=== PATIENT | female | born 1930 | race Caucasian/White ===

== ENCOUNTER → 2016-09-20 | Outpatient (REF) | payer MEDICARE, BC ==
[~2016-09-20] MED LIST: /WARF25TA OR; ACET65TA OR; ASPI81TA3 OR; COQ 10 PO; COZA25TA8 OR; FISH1000; GLUC500T3 OR; MULTIVIT PO; NITR0.4S SL; PERC5TAB8 OR; PRAVASTATIN PO; TOPR50TA OR; VIACTIV PO
== END ==
LOC: M LAB REF 17:37
PROVIDERS: ATTEND Nurse Practitioner Adult Health
DX: N39.0 Urinary tract infection, site not specified (principal)

== ENCOUNTER 2017-02-05 11:28 | Inpatient (IN) | payer MEDICARE, BC ==
[~2017-02-05] VITALS: Ht 157.5 cm; Wt 56.0 kg
[~2017-02-05 11:28] MED LIST changes: -ASPI81TA3 OR; +ASPI81TA3 PO
[2017-02-05] MEDS ORDERED: DONETAB5 PO (11:53)
[2017-02-05] MEDS ORDERED: ATOR80TA59 PO (11:53)
[2017-02-05] MEDS ORDERED: METO1TAB32 PO (11:53)
[2017-02-05] MEDS ORDERED: LISI-542 PO (11:53)
[2017-02-05] MEDS ORDERED: MELO7.5T7 PO (11:53)
[2017-02-05] MEDS ORDERED: BREO1INH INH (11:53)
[2017-02-05] MEDS ORDERED: BRIL90TA PO (11:53)
[2017-02-05 11:59] LABS: BASO % 0.3 % (0.0-1.0); EOS # 0.1 10^3/uL (0.0-0.50); EOS % 1.1 % (0.0-3.0); IMMATURE GRANULOCYTE % 1.9 % (0-0); LYMPH # 1.2 10^3/uL (1.5-4.5); LYMPH % 17.1 % (24.0-44.0); MEAN CORPUSCULAR HEMOGLOBIN 31.3 pg (27.0-33.0); MEAN CORPUSCULAR HGB CONC 32.1 g/dl (32.0-36.5); MEAN CORPUSCULAR VOLUME 97.7 fl (80.0-96.0); MONO # 0.9 10^3/uL (0.0-0.8); MONO % 13.1 % (0.0-5.0); NEUTROPHILS # 4.8 10^3/uL (1.8-7.7); NEUTROPHILS % 66.5 % (36.0-66.0); PLATELET COUNT, AUTOMATED 169 10^3/uL (150-450); RED CELL DISTRIBUTION WIDTH 14.7 % (11.5-14.5); WHITE BLOOD COUNT 7.2 10^3/uL (4.0-10.0)
[2017-02-05] MEDS ORDERED: ASPIRIN 81 MG CHEW TABLET PO ONE (12:00)
[2017-02-05 12:03] LABS: INR 1.02
[2017-02-05 12:11] LABS: CALCIUM LEVEL 9.5 MG/DL (8.8-10.2); CREATININE FOR GFR 1.18 MG/DL (0.55-1.02); GLOMERULAR FILTRATION RATE 46.1 (>32); POTASSIUM SERUM 4.5 MEQ/L (3.5-5.1)
--- NOTE | 2017-02-05 12:33 | ECGEPIP ---
Stationary ECG Study [facility] - ED Test Date: 2017-02-05 Pat Name: RENU DODD Department: Room: - Gender: F Photographer Aerial: jocelyn : 1930 Requested By: Sp Meehan Order Number: [id number] Reading MD: Triny Foote Measurements Intervals [place] Rate: 67 P: 22 [place]: 145 QRS: -42 QRSD: 96 T: -40 QT: 360 QTc: 382 Interpretive Statements SINUS RHYTHM WITH SINUS ARRHYTHMIA MARKED LEFT AXIS DEVIATION VOLTAGE CRITERIA FOR LVH MODERATE ST DEPRESSION, CLINICAL CORRELATION Electronically Signed On 02-05-2017 12:33:35 EST by Triny Foote
--- NOTE | 2017-02-05 12:52 | REP ---
REASON FOR EXAM: Chest pain. COMPARISON: 12/06/2013. The technique utilized in obtaining the radiograph has magnified the cardiac silhouette and accentuated the interstitial markings. There is no change from the prior exam. Dual chamber bipolar pacemaker device status quo. No cardiomegaly. No acute patchy opacities or pleural effusions. No change in the osseous structures. IMPRESSION: No evidence of acute cardiopulmonary disease. Signed by Medardo Corrales DO 02/05/2017 01:38 P
--- NOTE | 2017-02-05 13:00 | REP ---
REASON: Confusion. COMPARISON: 11/25/2014. Since the last examination, a large, approximately 5.7 x 2.6 cm sized areas of abnormal low attenuation has developed in the left parieto-occipital watershed region. 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 There is no evidence of an acute intracranial hemorrhage. There is no shift of the midline structures. The skull and skull base are unchanged. IMPRESSION: 1. 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 2. Chronic changes as described above. Signed by Medardo Corrales DO 02/05/2017 01:39 P
[2017-02-05] MEDS ORDERED: [UNRECOGNIZED DRUG - REMARK] PO (16:06)
[2017-02-05 16:25] LABS: MAGNESIUM LEVEL 2.1 MG/DL (1.8-2.4)
[2017-02-05 16:44] VITALS: BP 132/65
--- NOTE | 2017-02-05 17:18 | CR.PDOC ---
[facility] Consultation Consultation DATE OF CONSULTATION: Feb 05, 2017 at 11:28 PRIMARY CARE PHYSICIAN: Gisela Mata NP REFERRING PROVIDER: Dr. Rosario ATTENDING PHYSICIAN: Dr. Dominguez REASON FOR CONSULTATION/CHIEF COMPLAINT: confusion, weakness HISTORY OF PRESENT ILLNESS: 74-year-old female is brought in via EMS for confusion and weakness. PMH includes CAD s/p 1 stent in 2016 and dementia. Family noticed that she was wandering around lost and confused ~11am this morning. Per pt, she felt dizzy and off balance as well, but does not recall the event. Per patient "I just got up and didn't know where I was." Patient denies ever experiencing this before. Denies recent changes in medications, travel history, sick contacts. Patient denies all other ROS including chest pain , shortness of breath, slurred speech, facial droop, paresthesia, loss of bowel/ bladder function. Her significant other is in the room and states he administered Breo while waiting for ambulance. ALLERGIES: Please see below. HOME MEDICATIONS: Please see below. PAST MEDICAL HISTORY: 1. CAD s/p stent 2015 2. dementia PAST SURGICAL HISTORY: 1. pacemaker, 2012, Dr. Damon 2. 1 cardiac stent, 2015 3. left hip replacement FAMILY HISTORY: Mother: CAD SOCIAL HISTORY: Marital status and/or living arrangements: lives with significant other Anthony in [place]. Walks with cane Tobacco use: never ETOH: denies REVIEW OF SYSTEMS: CONSTITUTIONAL: Denies fever, chills, weight changes, night sweats. HEENT: Denies vision change, eye or ear pain. CARDIOVASCULAR: Denies chest pain or pressure, palpitations, edema. RESPIRATORY: Denies cough, wheezing, shortness of breath. GENITOURINARY: Denies dysuria, hematuria, pelvic pain or pressure. MUSCULOSKELETAL: Denies weakness or pain in all extremities and joints GASTROINTESTINAL: Denies nausea, vomiting, constipation, diarrhea melena, hematochezia, loss of appetite, dysphagia. SKIN: Denies new skin rashes. NEUROLOGICAL: Denies paresthesia, loss of sensation, facial droop, slurred speech, loss of bowel or bladder control, tongue biting, shaking. ENDOCRINE: Denies heat or cold intolerance. HEMATOLOGIC/LYMPHATIC: Denies easy or current bleeding or bruising. PHYSICAL EXAMINATION: VITAL SIGNS: Please see below. GENERAL APPEARANCE: NAD, A&O3 HEENT: Normocephalic, atraumatic. PERRLA, EOMI. No ptosis or facial droop. Tongue midline. Wears upper dentures. No carotid bruits or JVD. RESPIRATORY: CTAB. No wheezing. CARDIOVASCULAR: RRR, normal S1 and S2. ABDOMEN: Soft, nontender, nondistended. Positive bowel sounds. EXTREMITIES: No clubbing, cyanosis, edema. NEUROLOGICAL: No slurred speech. Motor and sensation intact throughout. PSYCHIATRIC: Normal mood and affect. Eager to go home. LABORATORY DATA: Please see below. ASSESSMENT/PLAN: Pt was recommended to be admitted to hospital for observation overnight, but pt requesting to leave AMA. Risks of leaving were discussed, pt still adamant about leaving AMA. For the following problems, we recommend: 1. Metabolic encephalopathy * Likely 2/2 UTI. Pt also has hx of dementia, which is also contributing to mentation * Unlikely to be cardiac etiology: negative cardiac markers and normal EKG and CXR, no murmurs on exam * Less likely to be neurologic: patient has no focal deficits, and head CT and vitals are normal and labs non-concerning * Negative BP orthostatics, patient asymptomatic when walked around the ED with assistance 2. UTI * Positive UA in ED * Although patient has no leukocytosis or fever, UTI in elderly may be contributing to confusion * Urine culture pending * Since patient is signing out of the hospital, we recommend 3 days of PO Ciprofloxacin 3. CAD * [place] in 2016, s/p 1 cardiac stent. Continue home meds with regular follow-ups with PCP and trash man. 4. Dementia * contributing factor to pt's confusion. Poor memory at baseline. Continue home med and may require home assistance. Vital Signs/I&O Vital Signs Date Time Temp Pulse Resp B/P (MAP) Pulse Ox O2 Delivery O2 Flow Rate FiO2 02/05/17 16:44 82 136/68 (90) 91 121/70 (87) 127 132/65 (87) 02/05/17 11:37 97.0 18 98 Room Air Laboratory Data Labs 24H Laboratory Tests 2 02/05/17 11:39: Immature Granulocyte % (Auto) 1.9H, White Blood Count 7.2, Red Blood Count 3.83L , Hemoglobin 12.0, Hematocrit 37.4, Mean Corpuscular Volume 97.7H, Mean Corpuscular Hemoglobin 31.3, Mean Corpuscular Hemoglobin Concent 32.1, Red Cell Distribution Width 14.7H, Platelet Count 169, Neutrophils (%) (Auto) 66.5H, Lymphocytes (%) (Auto) 17.1L, Monocytes (%) (Auto) 13.1H, Eosinophils (%) (Auto ) 1.1, Basophils (%) (Auto) 0.3, Neutrophils # (Auto) 4.8, Lymphocytes # (Auto) 1.2L, Monocytes # (Auto) 0.9H, Eosinophils # (Auto) 0.1, Basophils # (Auto) 0.0 , Immature Granulocyte # (Auto) 0.1H, Nucleated Red Blood Cells % (auto) 0.0, Prothrombin Time 13.5, Prothromb Time International Ratio 1.02, Activated Partial Thromboplast Time 32.6, Anion Gap 9, Glomerular Filtration Rate 46.1, Blood Urea Nitrogen 24H, Creatinine 1.18H, Sodium Level 139, Potassium Level 4.5 , Chloride Level 105, Carbon Dioxide Level 25, Calcium Level 9.5, Total Creatine Kinase 133, Creatine Kinase MB 3.4, Creatine Kinase MB Relative Index 2.55, Troponin I 0.02 02/05/17 14:17: Total Creatine Kinase 135, Creatine Kinase MB 3.4, Creatine Kinase MB Relative Index 2.51, Troponin I 0.02, Magnesium Level 2.1 02/05/17 16:25: Urine Appearance CLOUDYH, Urine Color YELLOW, Urine pH 5.0, Urine Specific [place] 1.014, Urine Protein NEGATIVE, Urine Glucose (UA) NEGATIVE, Urine Ketones NEGATIVE, Urine Urobilinogen 0.2, Urine Bilirubin NEGATIVE, Urine Leukocyte Esterase 3+H, Urine Blood 1+H, Urine Nitrite POSITIVE, Urine WBC (Auto ) TNTCH, Urine RBC (Auto) 3, Urine Hyaline Casts (Auto) 0, Urine Bacteria (Auto ) 2+H, Urine Squamous Epithelial Cells 3, Urine Sperm (Auto) CBC/BMP Laboratory Tests 02/05/17 11:39 Red Blood Count 3.83 L, Mean Corpuscular Volume 97.7 H, Mean Corpuscular Hemoglobin 31.3, Mean Corpuscular Hemoglobin Concent 32.1, Red Cell Distribution Width 14.7 H, Neutrophils (%) (Auto) 66.5 H, Lymphocytes (%) (Auto ) 17.1 L, Monocytes (%) (Auto) 13.1 H, Eosinophils (%) (Auto) 1.1, Basophils (% ) (Auto) 0.3, Neutrophils # (Auto) 4.8, Lymphocytes # (Auto) 1.2 L, Monocytes # (Auto) 0.9 H, Eosinophils # (Auto) 0.1, Basophils # (Auto) 0.0, Calcium Level 9.5, Total Creatine Kinase 133 Allergies Coded Allergies: Codeine (Unverified Adverse Reaction, Mild, GI UPSET, 11/23/13) Home Medications Scheduled Aspirin (Aspirin Ec) 81 Mg Tab, 81 MG PO QHS, (Reported) Atorvastatin Calcium (Atorvastatin Calcium) 80 Mg Tab, 80 MG PO QHS, (Reported) Donepezil Hcl (Donepezil HCl) 5 Mg Tab, 5 MG PO QHS, (Reported) Fluticasone/Vilanterol (Breo Ellipta 100-25 Mcg/INH) 1 Inh Inh, 1 PUFF INH DAILY , (Reported) Lisinopril (Lisinopril) 5 Mg Tab, 5 MG PO DAILY, (Reported) Metoprolol Succinate (Metoprolol Succinate ER) 25 Mg Tab, 25 MG PO DAILY, ( Reported) Ticagrelor Base (Brilinta) 90 Mg Tab, 90 MG PO BID, (Reported) [Otc Memory Med] , 1 TAB PO DAILY, (Reported) CANNOT REMEMBER NAME OF MEDICATION Scheduled PRN Meloxicam (Meloxicam) 7.5 Mg Tab, 7.5 MG PO DAILY PRN for PAIN, (Reported) GME ATTESTATION GME ATTESTATION My faculty preceptor for this patient encounter was physically present during the encounter and was fully available. All aspects of the patient interview, examination, medical decision making process, and medical care plan development were reviewed and approved by the faculty preceptor. The faculty preceptor is aware and concurs with the plan as stated in the body of this note and will attest to such by his/her cosignature. ATTENDING NOTE Attending Note: I have independently examined this patient and all aspects of the exam and treatment decisions have been discussed with the resident. A member of the hospitalist staff will continue to follow this patient through discharge. BHARAT BENOIT DO Feb 05, 2017 17:09 FINA DOMINGUEZ DO Feb 05, 2017 20:17
--- NOTE | 2017-02-06 08:02 | ECGEPIP ---
Stationary ECG Study [facility] - ED Test Date: 2017-02-05 Pat Name: RENU DODD Department: Room: - Gender: F Director Of Medical Staff Services: manuel : 1930 Requested By: Sp Meehan Order Number: [id number] Reading MD: pS Rosario Measurements Intervals [place] Rate: 71 P: -12 [place]: 154 QRS: -42 QRSD: 91 T: -43 QT: 356 QTc: 389 Interpretive Statements SINUS RHYTHM LEFT AXIS DEVIATION VOLTAGE CRITERIA FOR LVH NONSPECIFIC ST & T-WAVE ABNORMALITY SIMILAR TO PRIOR ON SAME DATE Electronically Signed On 02-06-2017 8:02:24 EST by Sp Rosario
== END 2017-02-05 17:29 | disposition left against medical advice (07) | DRG 690 ==
LOC: EDBD 11:28 → M ED 11:28 → M ED INP 16:03 → UNDOADMOB 16:03 → M ED INP 16:13
PROVIDERS: ADMIT Hospitalist; ATTEND Internal Medicine Nephrology
DX: N39.0 Urinary tract infection, site not specified (principal); F03.90 Unspecified dementia, unspecified severity, without behavioral disturbance, psychotic disturbance, mood disturbance, and anxiety; I25.10 Atherosclerotic heart disease of native coronary artery without angina pectoris; B96.20 Unspecified Escherichia coli [E. coli] as the cause of diseases classified elsewhere; Z95.0 Presence of cardiac pacemaker; Z96.642 Presence of left artificial hip joint; Z79.82 Long term (current) use of aspirin; Z79.899 Other long term (current) drug therapy

== ENCOUNTER 2017-09-30 20:54 | Inpatient (IN) | payer MEDICARE, BC ==
[2017-09-30] MEDS: cefTRIAXone SOD 1 GM in D5W MINI-BAG PLUS 50 ML IV (08:59)
[2017-09-30] MEDS: levETIRAcetam INJection 1,000 MG in D5W 100 ML IV (22:29)
[2017-09-30 22:34] LABS: HEMATOCRIT 35.9 % (36.0-47.0); HEMOGLOBIN 10.8 g/dl (12.0-15.5); MEAN CORPUSCULAR HEMOGLOBIN 31.4 pg (27.0-33.0); MEAN CORPUSCULAR HGB CONC 30.1 g/dl (32.0-36.5); MEAN CORPUSCULAR VOLUME 104.4 fl (80.0-96.0); PLATELET COUNT, AUTOMATED 178 10^3/uL (150-450); RED BLOOD COUNT 3.44 10^6/uL (4.00-5.40); RED CELL DISTRIBUTION WIDTH 14.6 % (11.5-14.5); WHITE BLOOD COUNT 11.7 10^3/uL (4.0-10.0)
[2017-09-30 22:41] LABS: ADD MANUAL DIFFER YES; DIFF SLIDE NUMBER 356; POS COUNT POS FLAG; POSITIVE MORPH POS FLAG
[2017-09-30 22:44] LABS: ANION GAP 8 MEQ/L (8-16); BLOOD UREA NITROGEN 27 MG/DL (7-18); CALCIUM LEVEL 9.4 MG/DL (8.8-10.2); CARBON DIOXIDE LEVEL 24 MEQ/L (21-32); CHLORIDE LEVEL 110 MEQ/L (98-107); CREATININE FOR GFR 1.36 MG/DL (0.55-1.30); GLOMERULAR FILTRATION RATE 39.1 (>32); GLUCOSE, FASTING 152 MG/DL (70-100); SODIUM LEVEL 142 MEQ/L (136-145)
[2017-09-30 22:48] LABS: LACTIC ACID SEPSIS PROTOCOL 1.4 MMOL/L (0.4-2.0)
[2017-09-30] MEDS: PHENobarbital INJ 65 MG/ML VIAL (J2560) IV (22:53)
[2017-09-30 22:59] LABS: ATYPICAL LYMPH 5 % (0-5); BASOPHILS 1 % (0-4); EOSINOPHILS 1 % (0-5); LYMPHOCYTES 21 % (16-52); METAMYELOCYTES 1 % (0-0); MONOCYTES 15 % (0-8); MYELOCYTES 1 % (0-0); NEUTROPHILS 55 % (35-75)
[2017-09-30 23:00] LABS: BURR CELLS 2+; PLATELET ESTIMATE NORMAL (NORMAL); POIKILOCYTOSIS 2+
[2017-10-01] MEDS ORDERED: BISACODYL 10 MG SUPP PR (00:30)
[2017-10-01] MEDS ORDERED: ONDANSETRON 4 MG TAB (S0181) PO (00:30)
[2017-10-01] MEDS ORDERED: ACETAMINOPHEN TAB 650MG DOSE (2X325MG) PO (00:30)
[2017-10-01] MEDS: ATORVASTATIN 20 MG TAB PO ×2 (00:38→19:14)
[2017-10-01] MEDS: TICAGRELOR 90 MG TABLET (BRILINTA) PO ×3 (00:39→19:14)
[2017-10-01] MEDS: DONEPEZIL 5 MG TAB PO ×2 (00:39→19:13)
[2017-10-01] MEDS ORDERED: levETIRAcetam 250MG TABLET (KEPPRA) PO (00:40)
[2017-10-01] MEDS: ADVAIR HFA 230/21MCG INHALER INH ×3 (00:41→19:52)
[2017-10-01] MEDS: ASPIRIN 81 MG CHEW TABLET PO ×2 (00:42→19:14)
[2017-10-01 04:33] LABS: HEMATOCRIT 30.8 % (36.0-47.0); HEMOGLOBIN 9.8 g/dl (12.0-15.5); MEAN CORPUSCULAR HEMOGLOBIN 31.5 pg (27.0-33.0); MEAN CORPUSCULAR HGB CONC 31.8 g/dl (32.0-36.5); PLATELET COUNT, AUTOMATED 157 10^3/uL (150-450); RED BLOOD COUNT 3.11 10^6/uL (4.00-5.40); RED CELL DISTRIBUTION WIDTH 14.5 % (11.5-14.5); WHITE BLOOD COUNT 13.3 10^3/uL (4.0-10.0)
[2017-10-01 05:00] LABS: ALBUMIN 3.7 GM/DL (3.2-5.2); ALBUMIN/GLOBULIN RATIO 1.06 (1.00-1.93); ALKALINE PHOSPHATASE 55 U/L (45-117); ALT/SGPT 26 U/L (12-78); ANION GAP 9 MEQ/L (8-16); AST/SGOT 30 U/L (7-37); BILIRUBIN,TOTAL 0.4 MG/DL (0.2-1.0); BLOOD UREA NITROGEN 27 MG/DL (7-18); CALCIUM LEVEL 9.2 MG/DL (8.8-10.2); CARBON DIOXIDE LEVEL 23 MEQ/L (21-32); CHLORIDE LEVEL 110 MEQ/L (98-107); GLOMERULAR FILTRATION RATE 41.2 (>32); GLUCOSE, FASTING 134 MG/DL (70-100); POTASSIUM SERUM 4.7 MEQ/L (3.5-5.1); SODIUM LEVEL 142 MEQ/L (136-145); TOTAL PROTEIN 7.2 GM/DL (6.4-8.2)
[2017-10-01 05:12] LABS: ESTIMATED AVERAGE GLUCOSE 117 MG/DL (60-110); HEMOGLOBIN A1c 5.7 %
[2017-10-01 05:13] LABS: KETONE, URINE AUTO RFX NEGATIVE (NEGATIVE); MUCUS, URINE RFX SMALL (NEGATIVE); NITRITE, URINE AUTO RFX NEGATIVE (NEGATIVE); RBC, URINE AUTO RFX 3 /HPF (0-3); SPECIFIC GRAVITY UR AUTO RFX 1.012 (1.002-1.035); SQUAM EPITHELIAL CELL UR AURFX 0 /HPF (0-6)
[2017-10-01 05:14] LABS: LEUKOCYTE ESTERASE UR AUTO RFX 3+ (NEGATIVE); WBC, URINE AUTO RFX 125 /HPF (0-3)
[2017-10-01] MEDS ORDERED: ONDANSETRON 4MG/2ML VIAL (J2405) As Ordered (08:24)
[2017-10-01] MEDS: ONDANSETRON 4MG/2ML VIAL (J2405) IV (08:30)
[2017-10-01] MEDS: NS 1,000 ML IV ×2 (08:59→20:27)
[2017-10-01] MEDS: LISINOPRIL 5 MG TAB PO (09:00)
[2017-10-01] MEDS: METOPROLOL SUCC *XL* 25MG TAB (TopROL *XL*) PO (09:00)
[2017-10-01] MEDS: levETIRAcetam 250MG TABLET (KEPPRA) PO (09:00)
[2017-10-01] MEDS: HEPARIN SOD (PORCINE) 5000 UNITS/ML VIAL SQ ×2 (13:25→21:20)
[2017-10-01] MEDS: levETIRAcetam INJection 500 MG in D5W MINI-BAG PLUS 100 ML IV ×2 (13:25→23:53)
[2017-10-02] MEDS: HEPARIN SOD (PORCINE) 5000 UNITS/ML VIAL SQ ×3 (05:42→21:03)
[2017-10-02] MEDS: ADVAIR HFA 230/21MCG INHALER INH ×2 (07:32→19:36)
[2017-10-02 07:41] LABS: BASO % 0.2 % (0.0-1.0); EOS % 0.1 % (0.0-3.0); HEMATOCRIT 27.7 % (36.0-47.0); HEMOGLOBIN 8.6 g/dl (12.0-15.5); IMMATURE GRANULOCYTE % 2.8 % (0-3.0); MEAN CORPUSCULAR HEMOGLOBIN 31.3 pg (27.0-33.0); MEAN CORPUSCULAR VOLUME 100.7 fl (80.0-96.0); MONO # 1.7 10^3/uL (0.0-0.8); MONO % 17.3 % (0.0-5.0); NEUTROPHILS # 6.9 10^3/uL (1.8-7.7); NEUTROPHILS % 69.6 % (36.0-66.0); PLATELET COUNT, AUTOMATED 137 10^3/uL (150-450); RED BLOOD COUNT 2.75 10^6/uL (4.00-5.40); RED CELL DISTRIBUTION WIDTH 14.9 % (11.5-14.5); WHITE BLOOD COUNT 9.9 10^3/uL (4.0-10.0)
[2017-10-02 08:15] LABS: ALBUMIN/GLOBULIN RATIO 1.03 (1.00-1.93); ALKALINE PHOSPHATASE 44 U/L (45-117); ALT/SGPT 21 U/L (12-78); ANION GAP 7 MEQ/L (8-16); AST/SGOT 30 U/L (7-37); BILIRUBIN,TOTAL 0.4 MG/DL (0.2-1.0); BLOOD UREA NITROGEN 19 MG/DL (7-18); CARBON DIOXIDE LEVEL 23 MEQ/L (21-32); CHLORIDE LEVEL 115 MEQ/L (98-107); CREATININE FOR GFR 0.92 MG/DL (0.55-1.30); GLOMERULAR FILTRATION RATE > 60.0 (>32); GLUCOSE, FASTING 91 MG/DL (70-100); MAGNESIUM LEVEL 2.1 MG/DL (1.8-2.4); POTASSIUM SERUM 4.2 MEQ/L (3.5-5.1); SODIUM LEVEL 145 MEQ/L (136-145); TOTAL PROTEIN 5.9 GM/DL (6.4-8.2)
[2017-10-02] MEDS: LISINOPRIL 5 MG TAB PO (08:36)
[2017-10-02] MEDS: METOPROLOL SUCC *XL* 25MG TAB (TopROL *XL*) PO (08:37)
[2017-10-02] MEDS: TICAGRELOR 90 MG TABLET (BRILINTA) PO ×2 (08:37→20:08)
[2017-10-02] MEDS: cefTRIAXone SOD 1 GM in D5W MINI-BAG PLUS 50 ML IV (08:38)
[2017-10-02] MEDS: levETIRAcetam INJection 500 MG in D5W MINI-BAG PLUS 100 ML IV ×2 (12:30→23:46)
[2017-10-02] MEDS: ASPIRIN 81 MG CHEW TABLET PO (20:08)
[2017-10-02] MEDS: DONEPEZIL 5 MG TAB PO (20:08)
[2017-10-02] MEDS: ATORVASTATIN 20 MG TAB PO (20:08)
[2017-10-03 04:29] LABS: BASO % 0.2 % (0.0-1.0); EOS # 0.1 10^3/uL (0.0-0.50); EOS % 0.6 % (0.0-3.0); HEMOGLOBIN 8.6 g/dl (12.0-15.5); IMMATURE GRANULOCYTE % 3.1 % (0-3.0); LYMPH # 1.1 10^3/uL (1.5-4.5); LYMPH % 11.2 % (24.0-44.0); MEAN CORPUSCULAR HEMOGLOBIN 31.7 pg (27.0-33.0); MEAN CORPUSCULAR HGB CONC 31.9 g/dl (32.0-36.5); MEAN CORPUSCULAR VOLUME 99.6 fl (80.0-96.0); MONO # 1.7 10^3/uL (0.0-0.8); MONO % 18.3 % (0.0-5.0); NEUTROPHILS # 6.2 10^3/uL (1.8-7.7); NEUTROPHILS % 66.6 % (36.0-66.0); PLATELET COUNT, AUTOMATED 122 10^3/uL (150-450); RED BLOOD COUNT 2.71 10^6/uL (4.00-5.40); RED CELL DISTRIBUTION WIDTH 14.7 % (11.5-14.5); WHITE BLOOD COUNT 9.3 10^3/uL (4.0-10.0)
[2017-10-03 04:51] LABS: ALBUMIN 3.1 GM/DL (3.2-5.2); ALKALINE PHOSPHATASE 43 U/L (45-117); ALT/SGPT 21 U/L (12-78); ANION GAP 7 MEQ/L (8-16); AST/SGOT 34 U/L (7-37); BILIRUBIN,TOTAL 0.4 MG/DL (0.2-1.0); BLOOD UREA NITROGEN 16 MG/DL (7-18); CALCIUM LEVEL 8.2 MG/DL (8.8-10.2); CARBON DIOXIDE LEVEL 24 MEQ/L (21-32); CHLORIDE LEVEL 111 MEQ/L (98-107); GLOMERULAR FILTRATION RATE > 60.0 (>32); GLUCOSE, FASTING 90 MG/DL (70-100); POTASSIUM SERUM 3.7 MEQ/L (3.5-5.1); SODIUM LEVEL 142 MEQ/L (136-145); TOTAL PROTEIN 6.2 GM/DL (6.4-8.2)
[2017-10-03] MEDS: HEPARIN SOD (PORCINE) 5000 UNITS/ML VIAL SQ (05:11)
[2017-10-03] MEDS: LISINOPRIL 5 MG TAB PO (07:51)
[2017-10-03] MEDS: cefTRIAXone SOD 1 GM in D5W MINI-BAG PLUS 50 ML IV (07:51)
[2017-10-03] MEDS: TICAGRELOR 90 MG TABLET (BRILINTA) PO ×2 (07:52→20:57)
[2017-10-03] MEDS: METOPROLOL SUCC *XL* 25MG TAB (TopROL *XL*) PO (07:52)
[2017-10-03] MEDS: ADVAIR HFA 230/21MCG INHALER INH ×2 (07:58→20:20)
[2017-10-03] MEDS: levETIRAcetam INJection 500 MG in D5W MINI-BAG PLUS 100 ML IV (12:16)
[2017-10-03] MEDS: ATORVASTATIN 20 MG TAB PO (20:56)
[2017-10-03] MEDS: ASPIRIN 81 MG CHEW TABLET PO (20:56)
[2017-10-03] MEDS: DONEPEZIL 5 MG TAB PO (20:57)
[2017-10-04] MEDS: levETIRAcetam INJection 500 MG in D5W MINI-BAG PLUS 100 ML IV (00:39)
[2017-10-04 06:50] LABS: HEMATOCRIT 28.1 % (36.0-47.0); HEMOGLOBIN 9.1 g/dl (12.0-15.5); MEAN CORPUSCULAR HEMOGLOBIN 31.5 pg (27.0-33.0); MEAN CORPUSCULAR HGB CONC 32.4 g/dl (32.0-36.5); MEAN CORPUSCULAR VOLUME 97.2 fl (80.0-96.0); PLATELET COUNT, AUTOMATED 133 10^3/uL (150-450); RED BLOOD COUNT 2.89 10^6/uL (4.00-5.40); RED CELL DISTRIBUTION WIDTH 14.7 % (11.5-14.5); WHITE BLOOD COUNT 8.2 10^3/uL (4.0-10.0)
[2017-10-04 06:52] LABS: ADD MANUAL DIFFER YES; DIFF SLIDE NUMBER 44; POS COUNT POS FLAG; POSITIVE MORPH POS FLAG
[2017-10-04] MEDS: ADVAIR HFA 230/21MCG INHALER INH (07:09)
[2017-10-04 07:11] LABS: ALBUMIN/GLOBULIN RATIO 0.91 (1.00-1.93); ALKALINE PHOSPHATASE 46 U/L (45-117); ALT/SGPT 23 U/L (12-78); ANION GAP 8 MEQ/L (8-16); AST/SGOT 36 U/L (7-37); BILIRUBIN,TOTAL 0.4 MG/DL (0.2-1.0); BLOOD UREA NITROGEN 14 MG/DL (7-18); CALCIUM LEVEL 8.4 MG/DL (8.8-10.2); CARBON DIOXIDE LEVEL 24 MEQ/L (21-32); CHLORIDE LEVEL 111 MEQ/L (98-107); CREATININE FOR GFR 0.94 MG/DL (0.55-1.30); GLOMERULAR FILTRATION RATE 59.8 (>32); GLUCOSE, FASTING 95 MG/DL (70-100); MAGNESIUM LEVEL 2.1 MG/DL (1.8-2.4); POTASSIUM SERUM 3.8 MEQ/L (3.5-5.1); SODIUM LEVEL 143 MEQ/L (136-145); TOTAL PROTEIN 6.3 GM/DL (6.4-8.2)
[2017-10-04 07:52] LABS: BASOPHILS 1 % (0-4); EOSINOPHILS 4 % (0-5); LYMPHOCYTES 20 % (16-52); MONOCYTES 4 % (0-8); MYELOCYTES 3 % (0-0); NEUTROPHILS 68 % (35-75)
[2017-10-04 07:53] LABS: ANISOCYTOSIS 1+; PLATELET ESTIMATE DECREASED (NORMAL); POIKILOCYTOSIS 1+
[2017-10-04] MEDS: LISINOPRIL 5 MG TAB PO (09:36)
[2017-10-04] MEDS: METOPROLOL SUCC *XL* 25MG TAB (TopROL *XL*) PO (09:36)
[2017-10-04] MEDS: cefTRIAXone SOD 1 GM in D5W MINI-BAG PLUS 50 ML IV (09:37)
[2017-10-04] MEDS: TICAGRELOR 90 MG TABLET (BRILINTA) PO (09:37)
[2017-10-04 10:57] LABS: BEDSIDE GLUCOSE 144 MG/DL (83-110)
[2017-10-04] MEDS: levETIRAcetam 250MG TABLET (KEPPRA) PO (13:05)
== END 2017-10-04 15:43 | disposition home or self-care (01) | DRG 689 ==
LOC: M ED INP 10-01 00:30 → M MSPAV 10-03 12:45 → M ICU 10-01 02:53 → M ED 20:54
DX: N39.0 Urinary tract infection, site not specified (principal); G93.41 Metabolic encephalopathy; G40.909 Epilepsy, unspecified, not intractable, without status epilepticus; I25.10 Atherosclerotic heart disease of native coronary artery without angina pectoris; E78.5 Hyperlipidemia, unspecified; F03.90 Unspecified dementia, unspecified severity, without behavioral disturbance, psychotic disturbance, mood disturbance, and anxiety; G93.89 Other specified disorders of brain; B96.20 Unspecified Escherichia coli [E. coli] as the cause of diseases classified elsewhere; Z79.82 Long term (current) use of aspirin; Z79.899 Other long term (current) drug therapy; Z88.5 Allergy status to narcotic agent; Z86.73 Personal history of transient ischemic attack (TIA), and cerebral infarction without residual deficits; Z79.02 Long term (current) use of antithrombotics/antiplatelets; Z95.0 Presence of cardiac pacemaker

== ENCOUNTER → 2018-12-14 | Outpatient (CLI) | payer MEDICARE, BC, MEDICAID ==
[~2018-12-14] MED LIST changes: -/WARF25TA OR; +ATOR80TA59 PO; +BREO1INH INH; +BRIL90TA PO; +COUM1TAB18 OR; +DONETAB5 PO; +KEPP1TAB PO; +LISI-542 PO; +MELO7.5T7 PO; +METO-743 OR; +METO1TAB32 PO; +PREV10CA PO; -TOPR50TA OR; +[UNRECOGNIZED DRUG - REMARK] PO
--- NOTE | 2018-12-14 16:24 | REP ---
Right hand series: Four views. History: Pain and swelling. Findings: Four views of the right hand show diffuse osteoporosis. There is severe osteoarthritis with erosive osteoarthritis pattern involving the MCP and IP joints of all five digits. There is also severe osteoarthritis at the first carpometacarpal articulation. There are mild subluxations of the MCP joints of the index, long and ring finger. There is chondrocalcinosis at the wrist and at the MCP joints. Vascular calcification is noted. No fracture is seen. There is some soft tissue irregularity and possible soft tissue deficit at the tip of the thumb. Impression: Severe erosive osteoarthritis pattern. Diffuse osteopenia. No fracture is seen. Electronically Signed by Kenneth Rodriguez MD 12/14/2018 06:29 P
--- NOTE | 2018-12-14 16:25 | REP ---
Right wrist: Four views. History: Pain and swelling. Findings: Four views of the right wrist demonstrate chondrocalcinosis. There is advanced osteoarthritis. There is mild widening of the naviculolunate interval consistent with degeneration of the naviculolunate ligament. There is no evidence of fracture or subluxation. Impression: Advanced degenerative change. No acute bony abnormality. Electronically Signed by Kenneth Rodriguez MD 12/14/2018 06:29 P
== END ==
LOC: M WUC 15:30
PROVIDERS: ATTEND Registered Nurse
DX: M19.031 Primary osteoarthritis, right wrist (principal); M19.041 Primary osteoarthritis, right hand